=== PATIENT | female | born 1950 | race Caucasian/White ===

== ENCOUNTER 2019-09-10 00:10 | Emergency (ER) | payer BC ==
[2019-09-10] MEDS ORDERED: Zofran 4 MG/2 ML VIAL IV ONE (00:18)
[2019-09-10] MEDS ORDERED: Sodium Chloride 0.9% 1000 ML 1,000 ML IV STA ×2 (00:18→02:13)
[2019-09-10] MEDS ORDERED: Sodium Chloride 0.9% 1000 ML 1,000 ML ONE ×2 (00:36→02:18)
[2019-09-10] MEDS ORDERED: Zofran 4 MG/2 ML VIAL ONE (00:36)
--- NOTE | 2019-09-10 00:59 | ERPHSYRPT ---
- History of Present Illness Time Seen by Provider: 09/10/19 00:10 Source: patient Exam Limitations: no limitations Patient Subjective Stated Complaint: pt arrived to er intoxicated. ems states boyfriend drove her home from the bar and dropped her off at home.boyfriend states that he could get her out of the smow after she fell on the ground Triage Nursing Assessment: pt is intoxicated answers some questions but is not oriented to pklace or time. states she has no pain . Physician History: Patient became very intoxicated drinking at a bar. Her boyfriend drove her home , but patient could not make it from the car into the home due to her intoxication. Patient's significant other could not get her up by himself, so he called EMS. Timing/Duration: today Severity of Symptoms-Max: moderate Severity of Symptoms-Current: moderate Context related to: significant other Suicidal thoughts: other (none) Associated Symptoms: confused, No angry, No agitated, No hostile, No hallucinating, No impaired concentration, No injury, No paranoid, No suicidal ideation Previous symptoms: same symptoms as today, no recent treatment Allergies/Adverse Reactions: acetaminophen [From Tylenol] Allergy (Verified 09/10/19 00:38) aspirin Allergy (Verified 09/10/19 00:38) codeine Allergy (Verified 09/10/19 00:38) influenza virus vaccine, specific [Influenza Virus Vacc,Specific] Allergy ( Verified 09/10/19 00:38) nifedipine [From Procardia] Allergy (Verified 09/10/19 00:38) Penicillins Allergy (Verified 09/10/19 00:38) propoxyphene HCl [From Darvon] Allergy (Verified 09/10/19 00:38) propoxyphene napsylate [From Darvocet-N 100] Allergy (Verified 09/10/19 00:38) Sulfa (Sulfonamide Antibiotics) Allergy (Verified 09/10/19 00:38) terazosin HCl [From Hytrin] Allergy (Verified 09/10/19 00:38) myacins Allergy (Uncoded 09/10/19 00:38) Home Medications: No Reportable Medications [No Reported Medications] 09/15/13 [History] Hx Tetanus, Diphtheria Vaccination/Date Given: Yes Hx Influenza Vaccination/Date Given: No Hx Pneumococcal Vaccination/Date Given: No - Past Medical History Pertinent Past Medical History: Yes Neurological History: No Pertinent History Cardiac History: Hypertension Respiratory History: Asthma Endocrine Medical History: No Pertinent History Musculoskeletal History: Osteoarthritis Female Reproductive Disorders: Uterine Cancer - Past Surgical History Past Surgical History: Yes Female Surgical History: Hysterectomy Other Surgical History: tonsillectomy - Social History Smoking Status: Never smoker Exposure to second hand smoke: No Drug Use: none Patient Lives Alone: Yes - Review of Systems Constitutional: No Fever, No Chills Eyes: No Eye Pain, No Tearing Ears, Nose, & Throat: No Nose Pain, No Nose Congestion, No Epistaxis, No Mouth Swelling, No Loose Teeth, No Painful Swallowing Respiratory: No Cough, No Dyspnea Cardiac: No Chest Pain, No Edema, No Syncope Abdominal/Gastrointestinal: Nausea, Vomiting, No Abdominal Pain, No Diarrhea Genitourinary Symptoms: No Dysuria, No Hematuria, No Flank Pain Musculoskeletal: No Back Pain, No Neck Pain Skin: No Rash Neurological: No Dizziness, No Focal Weakness, No Headache, No Parasthesia, No Seizure, No Sensory Changes, No Tremors, No Vertigo Psychological: No Emotional Lability Endocrine: No Excessive Sweating Hematologic/Lymphatic: No Easy Bleeding, No Easy Bruising All Other Systems: Reviewed and Negative - Nursing Vital Signs Nursing Vital Signs: Initial Vital Signs Pulse Rate 74 09/10/19 00:14 Respiratory Rate 20 09/10/19 00:14 Blood Pressure 114/73 09/10/19 00:14 O2 Sat by Pulse Oximetry 95 09/10/19 00:14 Pain Scale Pain Intensity 0 - Physical Exam General Appearance: no apparent distress, alert, other (intoxicated) Eyes, Ears, Nose, Throat Exam: normal ENT inspection, TMs normal, pharynx normal , moist mucous membranes, No pharyngeal erythema Neck Exam: normal inspection, non-tender, supple, full range of motion, No Brudzinski, No limited range of motion, No tenderness midline Respiratory Exam: normal breath sounds, lungs clear, airway intact, No respiratory distress, No diminished breath sounds, No crackles/rales, No rhonchi , No wheezing, No stridor Cardiovascular Exam: regular rate/rhythm, normal heart sounds, normal peripheral pulses, capillary refill <2 sec, No edema Gastrointestinal/Abdominal Exam: soft, normal bowel sounds, No tenderness, No distention, No rebound Extremities Exam: normal inspection, normal range of motion, No evidence of injury, No edema Current Suicidality: denies suicide plan Neurological Exam: alert, guest services ambassador II-XII nml as tested Appearance: appropriate appearance Behavior/Eye Contact/Speech: intoxicated appearance Skin Exam: normal color, warm, dry, No rash SpO2 Interpretation: normal SpO2: 95 O2 Delivery: Room Air - Course Nursing assessment & vital signs reviewed: Yes - Radiology Exams Chest X-ray Interpretation: Interpreted by me, Reviewed by me, No Pneumothorax, Nml Alignment, Nml Mediastinum, Other (cardiac border at the upper size of normal; chronic calcifications on the left uper extremity) Ordered Tests: Active Orders 24 hr Category Date Time Status Coating Machine Operator STAT Care 09/10/19 00:19 Active Catheter-[place] STAT Care 09/10/19 00:18 Active IV Insertion STAT Care 09/10/19 00:18 Active CHEST 1 VIEW (PORTABLE) Stat Exams 09/10/19 00:19 Taken ACETAMINOPHEN Stat Lab 09/10/19 00:43 Completed CBC W DIFF Stat Lab 09/10/19 00:43 Completed CMP Stat Lab 09/10/19 00:43 Completed CULTURE,URINE Stat Lab 09/10/19 01:45 Received ETHYL ALCOHOL Stat Lab 09/10/19 00:43 Completed Lactic Acid Stat Lab 09/10/19 01:53 Results MAGNESIUM Stat Lab 09/10/19 00:43 Completed PROTIME WITH INR Stat Lab 09/10/19 00:43 Completed SALICYLATE Stat Lab 09/10/19 00:43 Completed TROPONIN Q3H Lab 09/10/19 00:43 Completed TROPONIN Q3H Lab 09/10/19 03:27 Received TROPONIN Q3H Lab 09/10/19 06:30 Ordered TROPONIN Q3H Lab 09/10/19 09:30 Ordered TROPONIN Q3H Lab 09/10/19 12:30 Ordered UA W/RFX UR CULTURE Stat Lab 09/10/19 01:45 Completed Urine Triage Profile Stat Lab 09/10/19 01:45 Completed VENOUS BLOOD GAS Stat Lab 09/10/19 01:53 Results VENOUS BLOOD GAS Stat Lab 09/10/19 05:35 Results Medication Summary Discontinued Medications Generic Name Dose Route Start Last Admin Trade Name Freq PRN Reason Stop Dose Admin Sodium Chloride 1,000 mls @ 999 mls/hr 09/10/19 00:18 09/10/19 01:00 Sodium Chloride 0.9% 1000 Ml IV 09/10/19 01:18 999 mls/hr .Q1H1M STA Administration Sodium Chloride Confirm 09/10/19 00:36 Sodium Chloride 0.9% 1000 Ml Administered 09/10/19 00:37 Dose 1,000 mls @ ud .ROUTE .STK-MED ONE Sodium Chloride 1,000 mls @ 999 mls/hr 09/10/19 02:13 09/10/19 02:19 Sodium Chloride 0.9% 1000 Ml IV 09/10/19 03:13 999 mls/hr .Q1H1M STA Administration Sodium Chloride Confirm 09/10/19 02:18 Sodium Chloride 0.9% 1000 Ml Administered 09/10/19 02:19 Dose 1,000 mls @ ud .ROUTE .STK-MED ONE Ondansetron HCl 4 mg 09/10/19 00:18 09/10/19 01:00 Zofran 4 Mg/2 Ml Vial IV 09/10/19 00:19 4 mg STAT ONE Administration Ondansetron HCl Confirm 09/10/19 00:36 Zofran 4 Mg/2 Ml Vial Administered 09/10/19 00:37 Dose 4 mg .ROUTE .STK-MED ONE Lab/Rad Data: Laboratory Result Diagrams 09/10/19 00:43 09/10/19 00:43 Laboratory Results 09/10/19 09/10/19 09/10/19 Range/Units 05:35 01:53 01:45 WBC (4.0-10.5) K/mm3 RBC (4.1-5.4) M/mm3 Hgb (12.0-16.0) gm/dl Hct (35-47) % MCV (78-100) fl MCH (26-32) pg MCHC (32-36) g/dl RDW (11.5-14.0) % Plt Count (150-450) K/mm3 MPV (6-9.5) fl Gran % (36.0-66.0) % Eos # (Auto) (0-0.5) Absolute Lymphs (auto) (1.0-4.6) Absolute Monos (auto) (0.0-1.3) Lymphocytes % (24.0-44.0) % Monocytes % (0.0-12.0) % Eosinophils % (0.00-5.0) % Basophils % (0.0-0.4) % Absolute Granulocytes (1.4-6.9) Basophils # (0-0.4) PT (9.95-12.35) SECONDS INR (0.8-3.0) pO2/FiO2 Ratio Pending Pending VBG pH 7.32 7.24 L* (7.32-7.42) VBG pCO2 at Pat Temp 53 62 H* (42-55) mm/Hg VBG pO2 at Pat Temp 42 H 21 L (25-40) mm/Hg VBG HCO3 27.3 26.6 (22-28) meq/L VBG O2 Sat (Carl) 82 L 35 L (95-100) VBG Base Excess 0.3 -2.3 L (-2.0-2.0) VBG Hemoglobin 78 34 VBG Carboxyhemoglobin 3.3 3.3 (0.0-6.9) % T HGB POC Potassium 3.4 L 3.8 (3.5-5.1) Sodium (137-145) mmol/L Potassium (3.5-5.1) mmol/L Chloride (98-107) mmol/L Carbon Dioxide (22-30) mmol/L Anion Gap (5-15) MEQ/L BUN (7-17) mg/dL Creatinine (0.52-1.04) mg/dL Estimated GFR ML/MIN Glucose (74-106) mg/dL Lactic Acid 1.4 (0.4-2.0) Calcium (8.4-10.2) mg/dL Magnesium (1.6-2.3) mg/dL Total Bilirubin (0.2-1.3) mg/dL AST (14-36) U/L ALT (0-35) U/L Alkaline Phosphatase (38-126) U/L Troponin I (0.000-0.034) ng/mL Serum Total Protein (6.3-8.2) g/dL Albumin (3.5-5.0) g/dL Urine Color (YELLOW) Urine Appearance (CLEAR) Urine pH (5-6) Ur Specific [place] (1.005-1.025) Urine Protein (Negative) Urine Ketones (NEGATIVE) Urine Blood (0-5) Viet/ul Urine Nitrite (NEGATIVE) Urine Bilirubin (NEGATIVE) Urine Urobilinogen (0-1) mg/dL Ur Leukocyte Esterase (NEGATIVE) Urine Culture Reflexed (NO) Urine Glucose (NEGATIVE) mg/dL Salicylates (2-20) mg/dL Urine Opiates Level NEGATIVE (NEGATIVE) Ur Methadone NEGATIVE (NEGATIVE) Acetaminophen (10-30) ug/ml Urine Barbiturates NEGATIVE (NEGATIVE) Ur Phencyclidine (PCP) NEGATIVE (NEGATIVE) Urine Amphetamine NEGATIVE (NEGATIVE) U Benzodiazepine Level NEGATIVE (NEGATIVE) Urine Cocaine NEGATIVE (NEGATIVE) Urine Marijuana (THC) NEGATIVE (NEGATIVE) Ethyl Alcohol (0-10) mg/dL 09/10/19 09/10/19 09/10/19 Range/Units 01:45 00:43 00:43 WBC (4.0-10.5) K/mm3 RBC (4.1-5.4) M/mm3 Hgb (12.0-16.0) gm/dl Hct (35-47) % MCV (78-100) fl MCH (26-32) pg MCHC (32-36) g/dl RDW (11.5-14.0) % Plt Count (150-450) K/mm3 MPV (6-9.5) fl Gran % (36.0-66.0) % Eos # (Auto) (0-0.5) Absolute Lymphs (auto) (1.0-4.6) Absolute Monos (auto) (0.0-1.3) Lymphocytes % (24.0-44.0) % Monocytes % (0.0-12.0) % Eosinophils % (0.00-5.0) % Basophils % (0.0-0.4) % Absolute Granulocytes (1.4-6.9) Basophils # (0-0.4) PT (9.95-12.35) SECONDS INR (0.8-3.0) pO2/FiO2 Ratio VBG pH (7.32-7.42) VBG pCO2 at Pat Temp (42-55) mm/Hg VBG pO2 at Pat Temp (25-40) mm/Hg VBG HCO3 (22-28) meq/L VBG O2 Sat (Carl) (95-100) VBG Base Excess (-2.0-2.0) VBG Hemoglobin VBG Carboxyhemoglobin (0.0-6.9) % T HGB POC Potassium (3.5-5.1) Sodium (137-145) mmol/L Potassium (3.5-5.1) mmol/L Chloride (98-107) mmol/L Carbon Dioxide (22-30) mmol/L Anion Gap (5-15) MEQ/L BUN (7-17) mg/dL Creatinine (0.52-1.04) mg/dL Estimated GFR ML/MIN Glucose (74-106) mg/dL Lactic Acid (0.4-2.0) Calcium (8.4-10.2) mg/dL Magnesium 1.8 (1.6-2.3) mg/dL Total Bilirubin (0.2-1.3) mg/dL AST (14-36) U/L ALT (0-35) U/L Alkaline Phosphatase (38-126) U/L Troponin I < 0.012 (0.000-0.034) ng/mL Serum Total Protein (6.3-8.2) g/dL Albumin (3.5-5.0) g/dL Urine Color YELLOW (YELLOW) Urine Appearance CLEAR (CLEAR) Urine pH 6.0 (5-6) Ur Specific [place] 1.010 (1.005-1.025) Urine Protein NEGATIVE (Negative) Urine Ketones NEGATIVE (NEGATIVE) Urine Blood NEGATIVE (0-5) Viet/ul Urine Nitrite NEGATIVE (NEGATIVE) Urine Bilirubin NEGATIVE (NEGATIVE) Urine Urobilinogen NORMAL (0-1) mg/dL Ur Leukocyte Esterase 1+ (NEGATIVE) Urine Culture Reflexed NO (NO) Urine Glucose 50 (NEGATIVE) mg/dL Salicylates (2-20) mg/dL Urine Opiates Level (NEGATIVE) Ur Methadone (NEGATIVE) Acetaminophen (10-30) ug/ml Urine Barbiturates (NEGATIVE) Ur Phencyclidine (PCP) (NEGATIVE) Urine Amphetamine (NEGATIVE) U Benzodiazepine Level (NEGATIVE) Urine Cocaine (NEGATIVE) Urine Marijuana (THC) (NEGATIVE) Ethyl Alcohol (0-10) mg/dL 09/10/19 09/10/19 09/10/19 Range/Units 00:43 00:43 00:43 WBC 6.8 (4.0-10.5) K/mm3 RBC 4.74 (4.1-5.4) M/mm3 Hgb 12.8 (12.0-16.0) gm/dl Hct 40.2 (35-47) % MCV 84.8 (78-100) fl MCH 27.0 (26-32) pg MCHC 31.8 L (32-36) g/dl RDW 13.7 (11.5-14.0) % Plt Count 271 (150-450) K/mm3 MPV 10.2 H (6-9.5) fl Gran % 72.7 H (36.0-66.0) % Eos # (Auto) 0.04 (0-0.5) Absolute Lymphs (auto) 1.50 (1.0-4.6) Absolute Monos (auto) 0.32 (0.0-1.3) Lymphocytes % 21.9 L (24.0-44.0) % Monocytes % 4.7 (0.0-12.0) % Eosinophils % 0.6 (0.00-5.0) % Basophils % 0.1 (0.0-0.4) % Absolute Granulocytes 4.97 (1.4-6.9) Basophils # 0.01 (0-0.4) PT 11.4 (9.95-12.35) SECONDS INR 1.01 (0.8-3.0) pO2/FiO2 Ratio VBG pH (7.32-7.42) VBG pCO2 at Pat Temp (42-55) mm/Hg VBG pO2 at Pat Temp (25-40) mm/Hg VBG HCO3 (22-28) meq/L VBG O2 Sat (Carl) (95-100) VBG Base Excess (-2.0-2.0) VBG Hemoglobin VBG Carboxyhemoglobin (0.0-6.9) % T HGB POC Potassium (3.5-5.1) Sodium 137 (137-145) mmol/L Potassium 3.7 (3.5-5.1) mmol/L Chloride 102 (98-107) mmol/L Carbon Dioxide 27 (22-30) mmol/L Anion Gap 12.0 (5-15) MEQ/L BUN 17 (7-17) mg/dL Creatinine 0.48 L (0.52-1.04) mg/dL Estimated GFR > 60.0 ML/MIN Glucose 134 H (74-106) mg/dL Lactic Acid (0.4-2.0) Calcium 8.1 L (8.4-10.2) mg/dL Magnesium (1.6-2.3) mg/dL Total Bilirubin 0.40 (0.2-1.3) mg/dL AST 66 H (14-36) U/L ALT 35 (0-35) U/L Alkaline Phosphatase 79 (38-126) U/L Troponin I (0.000-0.034) ng/mL Serum Total Protein 7.4 (6.3-8.2) g/dL Albumin 4.0 (3.5-5.0) g/dL Urine Color (YELLOW) Urine Appearance (CLEAR) Urine pH (5-6) Ur Specific [place] (1.005-1.025) Urine Protein (Negative) Urine Ketones (NEGATIVE) Urine Blood (0-5) Viet/ul Urine Nitrite (NEGATIVE) Urine Bilirubin (NEGATIVE) Urine Urobilinogen (0-1) mg/dL Ur Leukocyte Esterase (NEGATIVE) Urine Culture Reflexed (NO) Urine Glucose (NEGATIVE) mg/dL Salicylates < 1.0 L (2-20) mg/dL Urine Opiates Level (NEGATIVE) Ur Methadone (NEGATIVE) Acetaminophen < 10 L (10-30) ug/ml Urine Barbiturates (NEGATIVE) Ur Phencyclidine (PCP) (NEGATIVE) Urine Amphetamine (NEGATIVE) U Benzodiazepine Level (NEGATIVE) Urine Cocaine (NEGATIVE) Urine Marijuana (THC) (NEGATIVE) Ethyl Alcohol 221 H (0-10) mg/dL - Progress Progress: improved Progress Note: 09/10/19 04:00 Patient resting comfortably and in sinus rhythm on the case monitor. 09/10/19 06:10 Patient is alert and oriented and has no complaints patient would not require inpatient admission for any further evaluation, monitoring and treatment as her hypothermia and brief respiratory acidosis both resolved with time, IV hydration and warmth here in the emergency department. Patient was hemodynamically in good condition at the time of discharge and in no type of respiratory distress. Counseled pt/family regarding: lab results, diagnosis, need for follow-up, rad results - Departure Departure Disposition: Home Clinical Impression: Acute respiratory acidosis Acute alcohol intoxication Qualifiers: Complication of substance-induced condition: uncomplicated Qualified Code(s): F10.920 - Alcohol use, unspecified with intoxication, uncomplicated Hypothermia Qualifiers: Encounter type: initial encounter Qualified Code(s): T68.XXXA - Hypothermia, initial encounter Condition: Fair Critical Care Time: No Referrals: SHANKAR WADE MUTUEL TELLER [Primary Care Provider] - 09/12/19 Instructions: Alcohol Abuse and Alcoholism (DC), Hypothermia Additional Instructions: Return back to the emergency department if any change in mental status, shivering uncontrollably, shortness of breath, chest pain, abdominal pain or any other concerning signs or symptoms that were not present at today's emergency department visit for immediate re-evaluation in the emergency department.
[2019-09-10 01:16] LABS: Absolute Neutrophil Ct (ANC) 4.97 (1.4-6.9); BASOPHIL % 0.1 % (0.0-0.4); Basophil (Absolute #) 0.01 (0-0.4); Eosinophil % 0.6 % (0.00-5.0); Eosinophil (Absolute #) 0.04 (0-0.5); Hematocrit 40.2 % (35-47); Hemoglobin 12.8 gm/dl (12.0-16.0); Lymphocytes % 21.9 % (24.0-44.0); Mean Cell Volume 84.8 fl (78-100); Mean Corpuscular Hgb Concent. 31.8 g/dl (32-36); Mean Platelet Volume 10.2 fl (6-9.5); Monocyte (Absolute #) 0.32 (0.0-1.3); Monocytes % 4.7 % (0.0-12.0); Neutrophil % 72.7 % (36.0-66.0); Platelet Count 271 K/mm3 (150-450); Red Blood Count 4.74 M/mm3 (4.1-5.4); Red Cell Distribution Width 13.7 % (11.5-14.0); White Blood Count 6.8 K/mm3 (4.0-10.5)
[2019-09-10 01:24] LABS: INR 1.01 (0.8-3.0); PROTIME 11.4 SECONDS (9.95-12.35)
[2019-09-10 01:31] LABS: ALKALINE PHOSPHATASE 79 U/L (38-126); BLOOD UREA NITROGEN 17 mg/dL (7-17); CHLORIDE 102 mmol/L (98-107); Calcium 8.1 mg/dL (8.4-10.2); Carbon Dioxide 27 mmol/L (22-30); Creatinine 1 0.48 mg/dL (0.52-1.04); ETHYL ALCOHOL 221 mg/dL (0-10); Glucose 134 mg/dL (74-106); Potassium 3.7 mmol/L (3.5-5.1); SGOT/AST 66 U/L (14-36); SGPT/ALT 35 U/L (0-35); SODIUM 137 mmol/L (137-145); Total Protein 7.4 g/dL (6.3-8.2)
[2019-09-10 01:32] LABS: ACETAMINOPHEN < 10 ug/ml (10-30); SALICYLATE < 1.0 mg/dL (2-20)
[2019-09-10 01:57] LABS: Lactic Acid 1.4 (0.4-2.0); VBG BASE EXCESS -2.3 (-2.0-2.0); VBG CARBOXYHEMOGLOBIN 3.3 % T HGB (0.0-6.9); VBG HCO3- 26.6 meq/L (22-28); VBG POTASSIUM 3.8 (3.5-5.1)
[2019-09-10 01:58] LABS: VBG pH 7.24 (7.32-7.42)
[2019-09-10 02:15] LABS: Amphetamine,Urine NEGATIVE (NEGATIVE); Barbiturate,Urine NEGATIVE (NEGATIVE); Benzodiazepine,Urine NEGATIVE (NEGATIVE); Cocaine,Urine NEGATIVE (NEGATIVE); Methadone,Urine NEGATIVE (NEGATIVE); Opiate,Urine NEGATIVE (NEGATIVE); PCP,Urine NEGATIVE (NEGATIVE); THC,Urine NEGATIVE (NEGATIVE)
[2019-09-10 04:21] LABS: Appearance CLEAR (CLEAR); Leukocyte Esterase 1+ (NEGATIVE)
[2019-09-10 04:22] LABS: Bilirubin NEGATIVE (NEGATIVE); Blood NEGATIVE Ery/ul (0-5); Glucose 50 mg/dL (NEGATIVE); Nitrite NEGATIVE (NEGATIVE); Protein,Urine Dip NEGATIVE (Negative); Urobilinogen NORMAL mg/dL (0-1)
[2019-09-10 04:24] LABS: Ketones NEGATIVE (NEGATIVE)
[2019-09-10 05:16] VITALS: BP 123/67
[2019-09-10 05:48] LABS: VBG BASE EXCESS 0.3 (-2.0-2.0); VBG CARBOXYHEMOGLOBIN 3.3 % T HGB (0.0-6.9); VBG HCO3- 27.3 meq/L (22-28); VBG POTASSIUM 3.4 (3.5-5.1); VBG pH 7.32 (7.32-7.42)
[2019-09-10 06:02] VITALS: PULSE 74
[2019-09-10 06:09] VITALS: O2SAT 95
--- NOTE | 2019-09-10 09:54 | XRAY ---
Indication: Emesis. Aspiration. Comparison: February 08, 2019. Portable apical lordotic chest demonstrates new right base infiltrate/atelectasis and cardiomegaly. Stable left apical calcified granuloma, bony degenerative changes, and bilateral shoulder calcified lymph nodes.
== END 2019-09-10 06:20 | disposition home or self-care (01) ==
LOC: ED 00:10
DX: E87.2 Acidosis (principal); F10.920 Alcohol use, unspecified with intoxication, uncomplicated; T68.XXXA Hypothermia, initial encounter; R41.0 Disorientation, unspecified; I10 Essential (primary) hypertension
CPT/HCPCS: 36415; 51702; 71045; 80053; 80307; 81001; 82805; 83605; 83735; 84484; 85025; 85610; 87086; 93041; 96374; 96375; 99284; G0481; 96360; 96361; J2405; G0480